=== PATIENT | female | born 2000 | race African-American/Black ===

== ENCOUNTER 2022-03-02 21:53 | Emergency (ER) | payer SELFPAY ==
[~2022-03-02] VITALS: Ht 149.9 cm; Wt 56.7 kg
[2022-03-02 22:17] VITALS: BP 114/70
[2022-03-02] MEDS ORDERED: KETOROLAC 30 MG/ML VIAL IM ONE (22:25)
[2022-03-02] MEDS ORDERED: ALBUTEROL SULFATE/IPRATROPIU 3 ML SOL IH ONE (22:25)
--- NOTE | 2022-03-02 22:30 | NUR ---
PT TO BED 5
--- NOTE | 2022-03-02 22:35 | NUR ---
RT at bedside for breathing treatment.
--- NOTE | 2022-03-02 22:46 | NUR ---
X-Ray at bedside.
[2022-03-02] MEDS ORDERED: ALBU0.0912 IH (23:33)
[2022-03-02] MEDS ORDERED: NAPR-54 PO (23:33)
[2022-03-02 23:44] VITALS: BP 114/70
--- NOTE | 2022-03-02 23:44 | NUR ---
Patient discharged. Written and verbal after care instructions given and explained about acute bronchitis. Patient alert, oriented and verbalized understanding of instructions. Ambulatory with steady gait. All questions addressed prior to discharge. ID band removed. Patient advised to follow up with PMD. Rx of Albuterol Sulfate and Naproxen given. Patient educated on indication of medication including possible reaction and side effects. Opportunity to ask questions provided and answered.
== END 2022-03-02 23:44 | disposition home or self-care (01) ==
LOC: MED 21:53
DX: J20.9 Acute bronchitis, unspecified (principal); R07.89 Other chest pain
CPT/HCPCS: 71045; 81025; 94640; 94760; 96372; 99283; J1885; Q0092

== ENCOUNTER 2022-07-05 21:38 | Emergency (ER) | payer MEDICAID ==
[~2022-07-05] VITALS: Ht 149.9 cm; Wt 55.3 kg
[~2022-07-05 21:38] MED LIST: ALBU0.0912 IH; NAPR-54 PO
[2022-07-05 23:04] VITALS: BP 104/74
--- NOTE | 2022-07-05 23:16 | NUR ---
RADHA WALKED TO LAB.
--- NOTE | 2022-07-06 00:07 | NUR ---
CALLED PT TO BED, NO ANSWER
--- NOTE | 2022-07-06 00:07 | NUR ---
PATIENT LEFT WITHOUT BEING SEEN BY DR. Irwin. NO FURTHER CARE PROVIDED FOR PATIENT.
== END 2022-07-06 00:07 | disposition left against medical advice (07) ==
LOC: MED 21:38
DX: N93.9 Abnormal uterine and vaginal bleeding, unspecified (principal); Z53.21 Procedure and treatment not carried out due to patient leaving prior to being seen by health care provider
CPT/HCPCS: 81025; 99281